=== PATIENT | female | born 1950 | race Caucasian/White ===

== ENCOUNTER 2022-05-22 17:36 | Observation (INO) | payer MEDICARE ==
[~2022-05-22] VITALS: Ht 167.6 cm; Wt 109.0 kg
[2022-05-22] VITALS (17 sets, daily range): BP systolic 146–186; BP diastolic 68–128
[2022-05-22] MEDS ORDERED: SYMBICORT1 AE1 IN (18:00)
[2022-05-22] MEDS ORDERED: LOSARTAN POTASS50 MG PO (18:01)
[2022-05-22] MEDS ORDERED: ASPIRIN81 MG PO (18:02)
[2022-05-22] MEDS ORDERED: ANASTROZOLE1 MG PO (18:02)
[2022-05-22] MEDS ORDERED: FLECAINIDE50 MG PO (18:03)
[2022-05-22] MEDS ORDERED: VITAMIN D325 MCG PO (18:06)
[2022-05-22] MEDS ORDERED: ATORVASTATIN CA20 MG PO (18:06)
[2022-05-22] MEDS ORDERED: TOPROL XL25 M1 PO (18:07)
[2022-05-22] MEDS ORDERED: ALBUTEROL SUL0.083 % IN (18:08)
[2022-05-22] MEDS ORDERED: NITROGLYCERIN0.4 MG SL (18:09)
[2022-05-22 18:26] LABS: HEMATOCRIT 40.3 % (37.0-47.0); HEMOGLOBIN 13.2 g/dl (12.0-16.0); IMMATURE GRANULOCYTES 0.2 % (0.0-5.0); MEAN CELL VOLUME 86.3 fL CALC (80.0-100.0); MEAN CORPUSCULAR HGB 28.3 pG CALC (26.0-32.0); MEAN CORPUSCULAR HGB CONC 32.8 g/dL CAL (32.0-36.0); NEUT# 6.57 thou/uL (2.00-7.15); RED BLOOD COUNT 4.67 mill/uL (4.20-5.60); RED CELL DISTRI WIDTH 12.9 % (11.5-15.5)
[2022-05-22 18:44] LABS: ALBUMIN 4.4 g/dL (3.2-5.0); ALKALINE PHOSPHATASE 77 u/l (38-126); ANION GAP 13 (6-22 (CALC)); BILIRUBIN, TOTAL 0.6 mg/dL (0.0-1.4); BUN 21 mg/dL (8-23); BUN/CREATININE RATIO 24 (12-20 (CALC)); CARBON DIOXIDE 28 mmol/l (22-30); CHLORIDE 107 mmol/l (95-108); CPK 43 u/l (30-165); CREATININE 0.9 mg/dL (0.5-1.0); GFR FOR AFR.AMER. > 60 ML/MIN (>=60 (CALC)); GFR OTHER RACES > 60 ML/MIN (>=60 (CALC)); LIPASE 126 u/l (23-300); MAGNESIUM 1.5 mg/dL (1.6-2.3); POTASSIUM 4.3 mmol/l (3.5-5.1); SGOT/AST 26 u/l (9-36); SODIUM 143 mmol/l (137-146); TOTAL PROTEIN 7.7 g/dL (6.3-8.2)
[2022-05-22 18:46] LABS: ACT PARTIAL THROMBO TIME 23.9 SECONDS (20.0-32.5); PROTHROMBIN TIME 9.9 SECONDS (9.0-12.5)
[2022-05-22 19:03] LABS: ETHYL ALCOHOL 0 mg/dl (0-30)
[2022-05-23 00:33] LABS: URINE BILIRUBIN - DIPSTICK NEGATIVE (NEGATIVE); URINE BLOOD DIPSTICK SMALL (NEGATIVE); URINE COLOR YELLOW; URINE GLUCOSE - DIPSTICK NEGATIVE (NEGATIVE); URINE KETONE NEGATIVE (NEGATIVE); URINE LEUK ESTERASE NEGATIVE (NEGATIVE); URINE PROTEIN - DIPSTICK NEGATIVE (NEG-TRACE); URINE UROBILINOGEN - DIPSTICK 0.2 E.U./dL (0.2)
[2022-05-23 00:41] LABS: URINE NITRITE - DIPSTICK NEGATIVE (Negative)
[2022-05-23 03:38] VITALS: BP 166/75
[2022-05-23 05:59] VITALS: BP 166/73
[2022-05-23 06:07] LABS: CHOLESTEROL HDL RATIO 4.9 (<4.4 (CALC)); MAGNESIUM 1.4 mg/dL (1.6-2.3)
[2022-05-23 09:54] VITALS: BP 150/92
[2022-05-23 11:00] VITALS: BP 150/92
[2022-05-23 14:50] VITALS: BP 178/96
== END 2022-05-23 18:27 | disposition home or self-care (01) ==
LOC: ED 17:36 → ED-I 20:45 → ED 21:00 → MS2 21:01
PROVIDERS: Internal Medicine; ADMIT Internal Medicine; ATTEND Internal Medicine
DX: R47.81 Slurred speech (principal); I10 Essential (primary) hypertension; E78.5 Hyperlipidemia, unspecified; Z90.12 Acquired absence of left breast and nipple
CPT/HCPCS: J3475; Q9967